=== PATIENT | female | born 1975 ===

== ENCOUNTER 2016-12-01 06:49 | Day surgery (SDC) | payer MEDICAID ==
[2016-11-24 10:26] VITALS: BMI 26.9
[2016-12-01] MEDS ORDERED: ePHEDrine 50 mg/ml Inj ONE (07:04)
[2016-12-01] MEDS ORDERED: Phenylephrine 10 mg/ml Inj ONE (07:04)
[2016-12-01] MEDS ORDERED: Propofol 10 mg/ml Inj (20 ML) ONE (07:04)
[2016-12-01] MEDS ORDERED: Midazolam 2 MG/2 ML VIAL ONE (07:04)
[2016-12-01] MEDS ORDERED: Succinylcholine 200 mg/10 ml Inj IV ONE (07:13)
[2016-12-01] MEDS: Lactated Ringer's 1,000 ML IV ONE (07:30)
--- NOTE | 2016-12-01 08:01 | CP.PCM.PN ---
Subjective - Date & Time of Evaluation Date of Evaluation: 12/01/16 Time of Evaluation: 08:01 - Subjective Subjective: 41 year old female with no PMHx was seen in [facility] for pre-operative evaluation for left heel spur surgery by Dr. Bajwa today. Patient has been having a lot of pain on her left heel and has exhausted conservative treatment and now opts for surgical intervention. NPO status confirmed. Patient is NAD and AAOx3 , denies n/v/f/c/sob/cp. Objective - Vital Signs/Intake and Output Vital Signs (last 24 hours): Temp Pulse Resp BP Pulse Ox 98.1 F 69 18 118/66 100 12/01/16 07:11 12/01/16 07:14 12/01/16 07:11 12/01/16 07:11 12/01/16 07:11 - Constitutional Appears: Well, Non-toxic, No Acute Distress - Extremities Exam Additional comments: Vasc:DP and PT pulses palpable 2/4 b/l. CFT < 3 seconds to all digits b/l. Skin temperature is warm to warm from proximal to distal b/l. Neuro: Gross sensation intact b/l Derm: Skin is well hydrated. No open lesions. Nails 1-5 b/l are WNL for thickness and length Ortho: Pain on compression of calcaneus on the left. Pain on palpation to medial calcaneal tubercle on the left. Biomechanical examination reveals ankle dorsiflexion range of motion to 90 degrees on the right, to 90 degrees on the left. Negative crepitus with AJ ROM b/l. STJ ROM is full b/l, right: 20 degrees inversion, 10 degrees eversion b/l. There is mild forefoot valgus present bilaterally. First MTPJ ROM on the left is to 40 degrees of dorsiflexion, 15 degrees of plantarflexion. Muscle strength is 5/5 for all dorsiflexors, plantarfexors, inverters, and everters without pain. There is mild hammering of the lesser digits b/l with flexible deformity. There is collpase of the medial arch upon stance and gait. Gait examination shows increased angle and base of gait, with early heel off, and excessive pronation throughout midstance and propulsion phases. Plan: Patient has failed conservative treatments such as injections and stretches. Patient for plantar fasciectomy and heel spur resection today. - Neurological Exam Neurological Exam: Alert, Awake, Oriented x3 - Psychiatric Exam Psychiatric exam: Normal Affect, Normal Mood Assessment and Plan - Assessment and Plan (Free Text) Assessment: 41 year old female for left heel spur resection Plan: Pt was seen and examined in [facility] Pt NPO status was confirmed All Pre-op testing and clearance was in the chart Pt has exhausted all conservative treatment at this time and is opting for surgical intervention Pt was explained procedure and post-operative course All pt's questions were answered to satisfaction No guarantees were made Pt understands all risks, benefits and complications of procedure Pt will follow-up with Dr. Bajwa
--- NOTE | 2016-12-01 08:03 | CP.SDSHP ---
Same Day Surgery H & P - History Proposed Procedure: left foot plantar fascietomy and heel spur resection Pre-Op Diagnosis: left foot painful heel spur and left foot plantar fasciitis - Allergies Allergies: Allergies No Known Allergies Allergy (Verified 11/24/16 09:35) - Physical Exam Vital Signs: Vital Signs 12/01/16 12/01/16 07:11 07:14 Temperature 98.1 F Pulse Rate 69 69 Respiratory 18 Rate Blood Pressure 118/66 O2 Sat by Pulse 100 Oximetry Mental Status: Alert & Oriented x3 Neuro: WNL Heart: WNL Lungs: WNL GI: WNL - {Optional Preform as Required} Integument: WNL Ortho: Other (pain on palpation to left medial calcaneal tubercle, pain on compression of calcaneus left) - Impression Impression: Pt was seen and examined in [facility]. Pt NPO status was confirmed. All Pre-op testing and clearance was in the chart. Pt has exhausted all conservative treatment at this time and is opting for surgical intervention. Pt was explained procedure and post-operative course. All pt's questions were answered to satisfaction. No guarantees were made. Pt understands all risks, benefits and complications of procedure. Pt will follow-up with Dr. Barillas Pt. Evaluated Today:Candidate for Anesthesia & Procedure: Yes - Date & Time Date: 12/01/16 Time: 08:02 Short Stay Discharge - Short Stay Discharge Admitting Diagnosis/Reason for Visit: M77.32 Disposition: HOME/ ROUTINE Referrals: Kevyn Quesada Jr., MD [Primary Care Provider] - Jj Barillas DPM [Staff Provider] - Instructions: Oxycodone/Acetaminophen (By mouth) Additional Instructions (Diet, Activity): Please keep dressing clean, dry, & intact to surgical site, use plastic bag over bandage for showering, wear post op shoe at all times when ambulating, call clinic if you see signs of infection (redness, swelling, malodor), please make an appointment to see Dr. Barillas in office within 1 week for post-op check. Progress Note/Discharge Note with Instructions: - Patient evaluated bedside in recovery s/p surgical procedure. - After surgical procedure patient in NAD - (+) Void, (+) Appetite - Capillary refill time <3s and NVSI intact. - Patient denies complaints at this time - Post operative instructions and plan of care explained to patient at length. - Pt. acknowledges understanding. - Patient stable for DC per podiatric surgery
[2016-12-01] MEDS ORDERED: Bupivacaine 0.5% 50 ML IJ ONE (08:09)
[2016-12-01] MEDS ORDERED: ceFAZolin 1 GM in Sodium Chloride 0.9% 100 ML IVPB ONE (08:09)
[2016-12-01] MEDS ORDERED: MethylPREDNISolone Depo 40 mg/ml Inj ONE (08:23)
[2016-12-01] MEDS ORDERED: Dexamethasone 4 mg/1 ml ONE (08:24)
[2016-12-01] MEDS ORDERED: Lidocaine 1% Inj (20ml) ONE (08:24)
[2016-12-01] MEDS: Lidocaine 1% Inj (20ml) IJ ONE (08:58)
[2016-12-01] MEDS: Bupivacaine 0.5% Inj(30mL) ONE (08:58)
[2016-12-01] MEDS ORDERED: Oxycodone/Acetaminophen 5/325 mg Tab PO PRN ×2 (09:28)
--- NOTE | 2016-12-01 09:32 | PCM.SURG1 ---
Surgeon's Initial Post Op Note - Surgeon's Notes Surgeon: Dr. Bajwa DPM Production Stage Manager: Dr. Steele DPM PGY-2 Type of Anesthesia: IV Sedation, Local Pre-Operative Diagnosis: left foot plantar fasciitis and heel spur Operative Findings: see dictation. I:12 mL 1:1 mixture of 1% lidocaine plain, 0.5% marcaine plain Post-Operative Diagnosis: same Operation Performed: left foot plantar fasciotomy, removal of heel spur Specimen/Specimens Removed: none Estimated Blood Loss: EBL {In ML}: 0 Blood Products Given: N/A Drains Used: No Drains Post-Op Condition: Good Date of Surgery/Procedure: 12/01/16 Time of Surgery/Procedure: 09:32
[2016-12-01 09:58] VITALS: RESP 20
--- NOTE | 2016-12-01 10:17 | OP ---
PROCEDURE DATE: 12/01/2016 SURGEON: Jj Barillas DPM INDUSTRIAL SECURITY ANALYST: Alexy Steele, PGY-2. STONE PROCESSING MACHINE OPERATOR: Dr. Mclean ANESTHESIA: IV sedation and local. PREOPERATIVE DIAGNOSES: Left foot plantar fasciitis with painful heel spur. POSTOPERATIVE DIAGNOSES: Left foot plantar fasciitis with painful heel spur. NAME OF THE PROCEDURE: Removal of left foot heel spur and painful plantar fascia. INDICATIONS: The patient is a 41-year-old female with above diagnosis. The patient has exhausted conservative treatment at this time and now requests surgical intervention. The patient signed the consent after careful explanation of risks, benefits, complications and alternative for surgical procedure. No guarantees were given nor implied. One gram of Ancef IV was given to the patient prior to the surgery. N.p.o. status was confirmed prior to taking patient to the OR. PREPARATION: The patient was brought to the operating room and placed on the operating room table in supine position. After induction of IV sedation, the patient received a total of 10 mL of 1:1 mixture of 0.5% Marcaine and 1% lidocaine plain in local block fashion to the left foot. Once local anesthesia was achieved, the left foot was then prepped and draped in usual sterile manner , then procedure began. DESCRIPTION OF PROCEDURE: Attention was directed to the plantar aspect of the left foot where under C-arm guidance, location of the plantar heel spur was identified with an 18 gauge spinal needle. A 1 cm transverse incision was made in the medial aspect of the patient's left heel. Using # 10 blade, the incision was deepened through subcutaneous tissue and tissues were frayed down to the level of the heel spur and the plantar fascia band. Through windshield motion of the #10 blade, the medial band of the plantar fascia was released and it was confirmed by using a hemostat to feel for any remaining fibers. Next, utilizing a straight rasp and under C-arm guidance, the plantar heel spur was removed. The wound site was then flushed with copious amount of sterile normal saline. The skin was reapproximated and coapted utilizing #3-0 nylon in a simple suture technique. The left foot was dressed with Xeroform, 4 x 4, ABD Pad, Syed and Krystian. The attending was present during the case. POSTOPERATIVE CONDITION: The patient tolerated anesthesia and procedure well and was escorted to the recovery room with vital signs stable and neurovascular status intact to the left foot. The patient will follow with Dr. Barillas. Alexy Steele DPM Jj Barillas DPM cc: [id number] TT: 12/01/2016 10:16:42 karin LEMOS
[2016-12-01 10:23] VITALS: O2SAT 98
[2016-12-01 11:33] VITALS: BP 104/70; PULSE 71; TEMP 98.4
== END 2016-12-01 13:00 | disposition home or self-care (01) ==
LOC: H.OPSURG 06:49
PROVIDERS: ATTEND Podiatrist Foot & Ankle Surgery
DX: M72.2 Plantar fascial fibromatosis (principal); M77.32 Calcaneal spur, left foot